=== PATIENT | female | born 1990 | race Caucasian/White ===

== ENCOUNTER 2018-08-19 13:14 | Emergency (ER) | payer MEDICAID ==
[~2018-08-19] VITALS: Ht 160 cm; Wt 68.0 kg
[2018-08-19] MEDS ORDERED: IBUPROFEN 600 MG TABLET PO ONE ×2 (13:30→13:48)
--- NOTE | 2018-08-19 14:04 | NUR ---
patient presented to ER, c/o right ankle pain s/p tripped and fall x 1 hrs ago [place]. alert and oriented x 4, verbally responsive, on room air, breathing evenly and unlabored. kept comfrotable, will continue to monitor accordingly.
[2018-08-19 14:54] VITALS: BP 125/77
--- NOTE | 2018-08-19 14:55 | NUR ---
Patient discharged to home in stable condition. Written and verbal after care instructions given. Patient verbalizes understanding of instruction.
== END 2018-08-19 14:55 | disposition home or self-care (01) ==
LOC: ER 13:15
DX: S93.491A Sprain of other ligament of right ankle, initial encounter (principal); F10.10 Alcohol abuse, uncomplicated; F17.200 Nicotine dependence, unspecified, uncomplicated; Y90.9 Presence of alcohol in blood, level not specified; W01.0XXA Fall on same level from slipping, tripping and stumbling without subsequent striking against object, initial encounter; Y93.01 Activity, walking, marching and hiking; Y92.89 Other specified places as the place of occurrence of the external cause; Y99.8 Other external cause status
CPT/HCPCS: 73610-TC; 73630-TC